=== PATIENT | female | born 1985 | race Two or more races ===

== ENCOUNTER 2016-05-30 23:54 | Observation (INO) | payer MEDICAID ==
[~2016-05-30] VITALS: Ht 167.6 cm; Wt 90.7 kg
[2016-05-31 01:00] LABS: Basophils # (auto) 0 uL; Basophils % (auto) 0.3 % (0.0-2.0); Eosinophils # (auto) 0.2 uL; Eosinophils % (auto) 1.1 % (0.0-7.0); Hematocrit 41.5 % (36.0-46.0); Hemoglobin 13.6 g/dL (12.2-16.2); Lymphocytes # (auto) 2.6 uL; Lymphocytes % (auto) 18.1 % (10.0-50.0); Mean Corpuscular Hemoglobin 27.4 pg (28.0-32.0); Mean Corpuscular Hgb Conc. 32.8 g/dL (32.0-36.0); Mean Corpuscular Volume 83.4 fL (80.0-100.0); Mean Platelet Volume 7.3 fL (7.4-10.4); Monocytes % (auto) 7.3 % (0.0-12.0); Neutrophils # (auto) 10.5 uL; Neutrophils % (auto) 73.2 % (37.0-80.0); Platelet Count (auto) 354 10^3/uL (140-450); Red Cell Distribution Width 13.9 % (11.6-16.0); White Blood Cell 14.3 10^3/uL (4.4-10.8)
[2016-05-31 01:06] LABS: Urine Bilirubin Negative (Negative); Urine Blood Negative /uL (Negative); Urine Color Yellow (Yellow); Urine Glucose Normal (Normal); Urine Ketone Negative (Negative); Urine Nitrite Negative (Negative); Urine RBC 1 /hpf (0 - 4); Urine Squamous Epithelial Cell FEW /hpf (<5); Urine Urobilinogen Normal (Negative); Urine pH 6.5 (5.0-8.0)
[2016-05-31 01:17] LABS: Albumin 3.9 g/dL (3.4-5.0); BUN/Creatinine Ratio 17.1; Calcium 8.8 mg/dL (8.5-10.1)
[2016-05-31 02:08] LABS: Bilirubin, Total 0.2 mg/dL (0.2-1.0); Potassium 3.6 mmol/L (3.5-5.1); Total Protein 7.7 g/dL (6.4-8.2)
[2016-05-31] MEDS ORDERED: SODIUM CHLORIDE 0.9% 1,000 ML IV ONE (08:43)
[2016-05-31] MEDS ORDERED: LORazepam 2MG/ML-1ML VIAL IV ONE (08:45)
[2016-05-31 09:45] VITALS: BP 122/76
== END 2016-05-31 11:08 | disposition home or self-care (01) | DRG 351 ==
LOC: ER 05-31 00:04 → OVERFLOW 05-31 07:16 → ER 05-31 11:03
PROVIDERS: ADMIT Emergency Medicine; ATTEND Emergency Medicine
DX: M79.1 Myalgia (principal); F41.9 Anxiety disorder, unspecified; F17.210 Nicotine dependence, cigarettes, uncomplicated
CPT/HCPCS: 36415; 80053; 81001; 84484; 84702; 85025; 93005; 96361; 96374; 99285; G0378; J2060; J7030

== ENCOUNTER 2016-11-27 15:44 | Emergency (ER) | payer MEDICAID | END 2016-11-27 16:04 | disposition left against medical advice (07) | LOC: ER 15:48 | DX: R52 Pain, unspecified (principal); Z53.21 Procedure and treatment not carried out due to patient leaving prior to being seen by health care provider ==

== ENCOUNTER 2016-11-27 18:41 | Emergency (ER) | payer MEDICAID ==
[~2016-11-27] VITALS: Ht 167.6 cm; Wt 99.8 kg
[2016-11-27 20:54] VITALS: BP 146/86
[2016-11-27] MEDS ORDERED: KETOROLAC TROMETH 60MG/2ML VIAL IM ONE (21:15)
[2016-11-27] MEDS ORDERED: cefTRIAXone SOD 1,000 MG VL IM ONE (21:15)
== END 2016-11-28 00:01 | disposition home or self-care (01) ==
LOC: ER 18:49
DX: N61.0 Mastitis without abscess (principal); F17.210 Nicotine dependence, cigarettes, uncomplicated
CPT/HCPCS: 76642; 96372; 99284; J0696; J1885